=== PATIENT | female | born 1965 | race Caucasian/White ===

== ENCOUNTER 2018-11-11 00:51 | Emergency (ER) | payer SELFPAY ==
[2018-11-11] MEDS ORDERED: Famotidine 20 MG/2 ML SDV IVPUSH ONE (01:23)
[2018-11-11] MEDS ORDERED: Ondansetron 4 MG/2 ML SDV IVPUSH ONE (01:23)
[2018-11-11] MEDS ORDERED: Sodium Chloride 0.9% 10 ML Syringe FLUSH PRN (01:23)
[2018-11-11] MEDS ORDERED: HYDROmorphone 1 MG/ML Syringe IVPUSH ONE (01:24)
--- NOTE | 2018-11-11 01:28 | EDM.PDOC ---
ED HPI GENERAL MEDICAL PROBLEM - General Chief Complaint: Abdominal Pain Stated Complaint: abdominal and back pain Time Seen by Provider: 11/11/18 01:09 Source of Information: Reports: Patient, RN Notes Reviewed - History of Present Illness INITIAL COMMENTS - FREE TEXT/NARRATIVE: 52-year-old lady comes in with upper midabdominal pain radiating to her back. She's had this for the last 2 or 3 days fairly steady, worse this evening after eating some eggs fried in "gann grease". She has had this in the past as well. She does have history of hypertension, thyroid disease and states she has actually been off of medication for about a year or more. She ran out of her meds, her provider moved away and she has not yet found a new provider. She did see a provider at [facility] earlier today, was provided some Prilosec but then called later and advised not to start taking it based on her lab work . Did have 1 dose prior to the phone call. She still does have her gallbladder. She states gallbladder disease does run in her family. Epigastric Pain Score (Numeric/FACES): 8 - Related Data Allergies Allergy/AdvReac Type Severity Reaction Status Date / Time No Known Allergies Allergy Verified 11/11/18 01:07 Home Meds: Home Meds Acetaminophen/HYDROcodone [[place] 325-5 MG] 1 tab PO Q6H PRN #14 tablet 11/11/18 [Rx] Hydrochlorothiazide [Microzide] 25 mg PO DAILY #30 capsule 11/11/18 [Rx] Past Medical History - Past Health History Medical/Surgical History: Denies Medical/Surgical History Social & Family History - Tobacco Use Smoking Status *Q: Never Smoker - Caffeine Use Caffeine Use: Reports: Coffee, Soda ED ROS GENERAL - Review of Systems Review Of Systems: See Below Constitutional: Denies: Fever, Chills, Diaphoresis HEENT: Denies: Throat Pain Respiratory: Denies: Shortness of Breath Cardiovascular: Denies: Chest Pain GI/Abdominal: Reports: Abdominal Pain, Nausea (Mild). Denies: Vomiting Musculoskeletal: Reports: Back Pain Skin: Reports: No Symptoms Neurological: Reports: No Symptoms ED EXAM, GI/ABD - Physical Exam Exam: See Below General Appearance: Alert, Moderate Distress Throat/Mouth: Normal Inspection Head: Atraumatic Neck: Supple Respiratory/Chest: No Respiratory Distress, Lungs Clear, Normal Breath Sounds Cardiovascular: Regular Rate, Rhythm GI/Abdominal Exam: Soft, Tender (Upper mid abdomen and right upper mid abdomen) Back Exam: No: CVA Tenderness (L), CVA Tenderness (R) Extremities: Normal Inspection. No: Pedal Edema, Leg Pain Neurological: No Motor/Sensory Deficits Skin Exam: Warm, Dry, Normal Color Course - Vital Signs Last Recorded V/S: Last Vital Signs Temp 97.1 F 11/11/18 01:03 Pulse 114 H 11/11/18 01:03 Resp 16 11/11/18 01:03 BP 217/95 H 11/11/18 01:03 Pulse Ox 96 11/11/18 01:03 - Orders/Labs/Meds Orders: Active Orders 24 hr Category Date Time Status Peripheral IV Care [RC] . DIRECTED Care 11/11/18 01:23 Active Sodium Chloride 0.9% [Saline Flush] Med 11/11/18 01:23 Active 10 ml FLUSH ASDIRECTED PRN Peripheral IV Insertion Adult [OM.PC] Stat Oth 11/11/18 01:23 Ordered Medication Orders Sodium Chloride (Saline Flush) 10 ml FLUSH ASDIRECTED PRN PRN Reason: Keep Vein Open Last Admin: 11/11/18 01:37 Dose: 10 ml Meds: Medications Generic Name Dose Route Start Last Admin Trade Name Freq PRN Reason Stop Dose Admin Sodium Chloride 10 ml 11/11/18 01:23 11/11/18 01:37 Saline Flush FLUSH 10 ml ASDIRECTED PRN Administration Keep Vein Open Discontinued Medications Generic Name Dose Route Start Last Admin Trade Name Freq PRN Reason Stop Dose Admin Famotidine 20 mg 11/11/18 01:23 11/11/18 01:34 Pepcid IVPUSH 11/11/18 01:24 20 mg ONETIME ONE Administration Hydromorphone HCl 0.5 mg 11/11/18 01:24 11/11/18 01:35 Dilaudid IVPUSH 11/11/18 01:25 0.5 mg ONETIME ONE Administration Ondansetron HCl 4 mg 11/11/18 01:23 11/11/18 01:33 Zofran IVPUSH 11/11/18 01:24 4 mg ONETIME ONE Administration - Re-Assessments/Exams Free Text/Narrative Re-Assessment/Exam: 11/11/18 02:19 We did request information from [facility] regarding labs and visit of yesterday afternoon. Her white blood count did come over, chemistries did not come over. White blood count was 11,200, hgb 9.4. We have given Dilaudid 0.5 mg IV, Zofran 4 mg IV and that has given her fairly good relief of her discomfort. Resting comfortably at this time, feels up to going home. Have written a request for out patient ultrasound of her gallbladder. Radiology will call her this morning to set up a time for that. Blood pressure was very high on arrival, did come down to 176/80 and now currently 184/68. Did write a prescription for the hydrochlorothiazide 25 mg daily that she had previously been on and apparently ran out about a year ago. Departure - Departure Time of Disposition: 15:00 Disposition: Home, Self-Care 01 Condition: Fair Clinical Impression: Abdominal pain Qualifiers: Abdominal location: upper abdomen, unspecified Qualified Code(s): R10.10 - Upper abdominal pain, unspecified Hypertension Qualifiers: Hypertension type: essential hypertension Qualified Code(s): I10 - Essential ( primary) hypertension - Discharge Information Prescriptions: Acetaminophen/HYDROcodone [[place] 325-5 MG] 1 tab PO Q6H PRN #14 tablet PRN Reason: Pain Hydrochlorothiazide [Microzide] 25 mg PO DAILY #30 capsule Instructions: How to Take Your Blood Pressure, [id number], Hypertension, Easy -to-Read Referrals: PCP,None [Primary Care Provider] - Forms: ED Department Discharge Additional Instructions: Order has been submitted to radiology for ultrasound of gallbladder, they will call you this morning to give you a time to get that done. Nothing to eat or drink from midnight on the morning before getting your ultrasound done. Follow- up clinic one or 2 days after ultrasound of the gallbladder to get results. In the meantime avoid all fatty foods. Start hydrochlorothiazide 25 mg daily for hypertension as previously prescribed. Tylenol for mild discomfort, hydrocodone if needed for severe pain. Return to ED as needed if symptoms worsening in any way. - My Orders Last 24 Hours: My Active Orders 11/11/18 01:23 Peripheral IV Care [RC] . DIRECTED Sodium Chloride 0.9% [Saline Flush] 10 ml FLUSH ASDIRECTED PRN Peripheral IV Insertion Adult [OM.PC] Stat - Assessment/Plan Last 24 Hours: My Active Orders 11/11/18 01:23 Peripheral IV Care [RC] . DIRECTED Sodium Chloride 0.9% [Saline Flush] 10 ml FLUSH ASDIRECTED PRN Peripheral IV Insertion Adult [OM.PC] Stat
== END 2018-11-11 02:41 | disposition home or self-care (01) ==
LOC: JD.ED 00:51
DX: R10.11 Right upper quadrant pain (principal); I10 Essential (primary) hypertension
CPT/HCPCS: 96374; 96375; 99283; J1170; J2405; J3490; 99284

== ENCOUNTER 2019-10-12 19:30 | Emergency (ER) | payer BC ==
[2019-10-12] MEDS ORDERED: cloNIDine 0.1 MG Tab PO ONE (20:14)
--- NOTE | 2019-10-12 21:46 | EDM.PDOC ---
ED HPI GENERAL MEDICAL PROBLEM - General Chief Complaint: Cardiovascular Problem Stated Complaint: high blood pressure Time Seen by Provider: 10/12/19 19:51 Source of Information: Reports: Patient, RN Notes Reviewed - History of Present Illness INITIAL COMMENTS - FREE TEXT/NARRATIVE: 33-year-old female referred here from clinic for elevated blood pressure. Pressure at the clinic was just over 200 systolic and she had a similar reading at home this afternoon. She states the last several days have been very stressful and that has not helped. No chest discomfort or difficulty breathing. No headache, visual difficulties or other unusual symptoms. She does have history of borderline hypertension in the past, has been on hydrochlorothiazide in the past. He states that she also does have known renal insufficiency, etiology not clear. - Related Data Allergies Allergy/AdvReac Type Severity Reaction Status Date / Time No Known Allergies Allergy Verified 11/11/18 01:07 Home Meds: Home Meds hydroCHLOROthiazide [Hydrochlorothiazide] 12.5 mg PO DAILY #30 cap 10/12/19 [Rx] Past Medical History - Past Health History Medical/Surgical History: Denies Medical/Surgical History Genitourinary History: Reports: Acute Renal Failure Other Genitourinary History: diagnosed about 1 yr ago - Infectious Disease History Infectious Disease History: Reports: Shingles - Past Surgical History GI Surgical History: Reports: Cholecystectomy Social & Family History - Tobacco Use Smoking Status *Q: Never Smoker - Caffeine Use Caffeine Use: Reports: Coffee, Soda, Tea - Recreational Drug Use Recreational Drug Use: No ED ROS GENERAL - Review of Systems Review Of Systems: See Below Constitutional: Denies: Fever, Chills, Diaphoresis HEENT: Reports: No Symptoms Respiratory: Denies: Shortness of Breath, Hemoptysis GI/Abdominal: Denies: Abdominal Pain, Nausea, Vomiting : Denies: Dysuria, Flank Pain Musculoskeletal: Denies: Shoulder Pain, Arm Pain, Back Pain Skin: Reports: No Symptoms Neurological: Reports: No Symptoms ED EXAM, GENERAL - Physical Exam Exam: See Below General Appearance: Alert, No Apparent Distress Eye Exam: Bilateral Eye: PERRL Throat/Mouth: Normal Inspection, Normal Oropharynx Head: Atraumatic. No: Facial Swelling Neck: Supple, Other Respiratory/Chest: No Respiratory Distress, Lungs Clear, Normal Breath Sounds. No: Respiratory Distress, Rales, Rhonchi, Wheezing Cardiovascular: Tachycardia GI/Abdominal: Soft, Non-Tender Back Exam: No: CVA Tenderness (L), CVA Tenderness (R) Extremities: Normal Inspection, Normal Range of Motion. No: Pedal Edema, Leg Pain Neurological: Alert, Oriented, No Motor/Sensory Deficits Skin Exam: Warm, Dry, Normal Color Course - Vital Signs Last Recorded V/S: Last Vital Signs Temp 98.7 F 10/12/19 19:53 Pulse 87 10/12/19 21:52 Resp 20 10/12/19 19:53 BP 154/65 H 10/12/19 21:52 Pulse Ox 100 10/12/19 19:53 - Orders/Labs/Meds Labs: Laboratory Tests 10/12/19 10/12/19 Range/Units 20:32 20:32 WBC 10.35 H (3.98-10.04) K/mm3 RBC 4.12 (3.98-5.22) M/mm3 Hgb 11.2 (11.2-15.7) gm/dl Hct 37.1 (34.1-44.9) % MCV 90.0 (79.4-94.8) fl MCH 27.2 (25.6-32.2) pg MCHC 30.2 L (32.2-35.5) g/dl RDW Std Deviation 48.6 H (36.4-46.3) fL Plt Count 303 (182-369) K/mm3 MPV 10.0 (9.4-12.3) fl Neut % (Auto) 72.1 H (34.0-71.1) % Lymph % (Auto) 20.1 (19.3-51.7) % [place] % (Auto) 5.4 (4.7-12.5) % Eos % (Auto) 1.8 (0.7-5.8) Baso % (Auto) 0.4 (0.1-1.2) % Neut # (Auto) 7.46 H (1.56-6.13) K/mm3 Lymph # (Auto) 2.08 (1.18-3.74) K/mm3 [place] # (Auto) 0.56 H (0.24-0.36) K/mm3 Eos # (Auto) 0.19 (0.04-0.36) K/mm3 Baso # (Auto) 0.04 (0.01-0.08) K/mm3 Manual Slide Review Normal smear Sodium 139 (136-145) mEq/L Potassium 4.0 (3.5-5.1) mEq/L Chloride 104 (98-107) mEq/L Carbon Dioxide 21 (21-32) mEq/L Anion Gap 18.0 H (5-15) BUN 43 H (7-18) mg/dL Creatinine 2.4 H (0.55-1.02) mg/dL Est Cr Clr Drug Dosing 27.03 mL/min Estimated GFR (MDRD) 21 (>60) mL/min BUN/Creatinine Ratio 17.9 (14-18) Glucose 126 H (74-106) mg/dL Calcium 9.3 (8.5-10.1) mg/dL Total Bilirubin 0.3 (0.2-1.0) mg/dL AST 12 L (15-37) U/L ALT 19 (14-59) U/L Alkaline Phosphatase 149 H (46-116) U/L Total Protein 7.8 (6.4-8.2) g/dl Albumin 3.4 (3.4-5.0) g/dl Globulin 4.4 gm/dL Albumin/Globulin Ratio 0.8 L (1-2) Meds: Medications Discontinued Medications Generic Name Dose Route Start Last Admin Trade Name Kavya PRN Reason Stop Dose Admin Clonidine HCl 0.2 mg 10/12/19 20:14 10/12/19 20:25 Catapres PO 10/12/19 20:15 0.2 mg ONETIME ONE Administration - Re-Assessments/Exams Free Text/Narrative Re-Assessment/Exam: 10/13/19 01:02 Creatinine 2.4, BUN mildly elevated. Other labs relatively okay. Was given clonidine 0.2 mg p.o. and with that BP came down to the 160/90 range. She has been on hydrochlorothiazide the past, sounds like she just did not carry through with that, we will put her back on low-dose hydrochlorothiazide 12.5 mg daily for now. 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 Discharge instructions as documented. Departure - Departure Time of Disposition: 21:42 Disposition: Home, Self-Care 01 Condition: Fair Clinical Impression: Renal insufficiency Hypertension Qualifiers: Hypertension type: essential hypertension Qualified Code(s): I10 - Essential ( primary) hypertension Prescriptions: hydroCHLOROthiazide [Hydrochlorothiazide] 12.5 mg PO DAILY #30 cap Instructions: Hypertension, [id number], Chronic Kidney Disease, Adult Referrals: Pelon Saldaña MD [Primary Care Provider] - Forms: ED Department Discharge Additional Instructions: See your Mowing Machine Operator in 2 weeks as planned. Hydrochlorothiazide 12.5 mg daily for now. [facility] Check your BP at home 2 to 3 times daily and keep a log for your providers. Follow up with your local provider in the meantime as needed. Sepsis Event Note - Evaluation Sepsis Screening Result: No Definite Risk - Focused Exam Vital Signs: Vital Signs Temp Pulse Resp BP BP Pulse Ox 10/12/19 21:52 87 154/65 H 10/12/19 20:25 181/89 H 10/12/19 19:53 98.7 F 104 H 20 172/94 H 100 Date Exam was Performed: 10/13/19 Time Exam was Performed: 00:58
== END 2019-10-12 21:53 | disposition home or self-care (01) ==
LOC: JD.ED 19:30 → SUPCPDRO 19:30 → JD.ED 21:53
DX: I10 Essential (primary) hypertension (principal); N28.9 Disorder of kidney and ureter, unspecified; Z79.899 Other long term (current) drug therapy
CPT/HCPCS: 36415; 80053; 85025; 99283; A9270

== ENCOUNTER 2019-10-15 06:59 | Emergency (ER) | payer BC ==
--- NOTE | 2019-10-15 07:07 | EDM.PDOC ---
ED HPI GENERAL MEDICAL PROBLEM - General Chief Complaint: General Stated Complaint: BLOOD PRESSURE Time Seen by Provider: 10/15/19 07:07 - History of Present Illness INITIAL COMMENTS - FREE TEXT/NARRATIVE: 53-year-old female presents to the emergency room with elevated blood pressure. Apparently the patient has some underlying renal insufficiency and has seen nephrology for this. Several days ago she was started on hydrochlorothiazide. She took 12.5 mg for 1 day and then this was increased to 25 mg a day. Nephrology started her on amlodipine 5 mg a day. This morning she took her blood pressure she was not having any new symptoms and her systolic blood pressure was 217. She did not have any chest pain chest pressure or breathing difficulties or shortness of breath but became really concerned about this and she is stressing over her uncertain kidney problems. Patient had a cholecystectomy about a year ago and her creatinine was elevated at that time most recently has been running 2.5. - Related Data Allergies Allergy/AdvReac Type Severity Reaction Status Date / Time No Known Allergies Allergy Verified 11/11/18 01:07 Home Meds: Home Meds hydroCHLOROthiazide [Hydrochlorothiazide] 12.5 mg PO DAILY #30 cap 10/12/19 [Rx] amLODIPine [Norvasc] 5 mg PO DAILY 10/15/19 [History] hydrALAZINE [Apresoline] 10 mg PO Q8H #30 tab 10/15/19 [Rx] Past Medical History - Past Health History Medical/Surgical History: Denies Medical/Surgical History Genitourinary History: Reports: Acute Renal Failure Other Genitourinary History: diagnosed about 1 yr ago - Infectious Disease History Infectious Disease History: Reports: Shingles - Past Surgical History GI Surgical History: Reports: Cholecystectomy Social & Family History - Caffeine Use Caffeine Use: Reports: Coffee, Soda, Tea ED ROS GENERAL - Review of Systems Review Of Systems: See Below Constitutional: Reports: No Symptoms HEENT: Reports: No Symptoms Respiratory: Reports: No Symptoms Cardiovascular: Reports: No Symptoms GI/Abdominal: Reports: No Symptoms : Reports: No Symptoms Skin: Reports: No Symptoms Neurological: Reports: No Symptoms ED EXAM, GENERAL - Physical Exam Exam: See Below Exam Limited By: No Limitations General Appearance: Alert, No Apparent Distress Head: Atraumatic, Normocephalic Neck: Normal Inspection, Supple, Non-Tender, Full Range of Motion, Other (No JVD ). No: Lymphadenopathy (L), Lymphadenopathy (R) Respiratory/Chest: No Respiratory Distress, Lungs Clear, Normal Breath Sounds Cardiovascular: Regular Rate, Rhythm, No Edema, No Murmur GI/Abdominal: Normal Bowel Sounds, Soft, Non-Tender, Other (Obese) Back Exam: Normal Inspection. No: CVA Tenderness (L), CVA Tenderness (R) Extremities: Normal Inspection, No Pedal Edema Course - Vital Signs Last Recorded V/S: Last Vital Signs Temp 36.2 C 10/15/19 07:08 Pulse 92 10/15/19 07:08 Resp 18 10/15/19 07:08 BP 186/106 H 10/15/19 07:08 Pulse Ox - Orders/Labs/Meds Orders: Active Orders 24 hr Category Date Time Status EKG Documentation Completion [RC] STAT Care 10/15/19 07:45 Active Art Willy Duplex Renal Ltd [US] Stat Exams 10/15/19 08:07 Taken Retroperitoneal Ltd [US] Routine Exams 10/15/19 10:40 Taken Labs: Laboratory Tests 10/15/19 10/15/19 10/15/19 Range/Units 08:05 08:05 08:05 WBC 6.69 (3.98-10.04) K/mm3 RBC 4.13 (3.98-5.22) M/mm3 Hgb 11.3 (11.2-15.7) gm/dl Hct 37.1 (34.1-44.9) % MCV 89.8 (79.4-94.8) fl MCH 27.4 (25.6-32.2) pg MCHC 30.5 L (32.2-35.5) g/dl RDW Std Deviation 48.2 H (36.4-46.3) fL Plt Count 274 (182-369) K/mm3 MPV 10.0 (9.4-12.3) fl Neutrophils % (Manual) 66 H (40-60) % Band Neutrophils % 0 (0-10) % Lymphocytes % (Manual) 28 (20-40) % Atypical Lymphs % 0 % Monocytes % (Manual) 3 (2-10) % Eosinophils % (Manual) 3 (0.7-5.8) % Basophils % (Manual) 0 L (0.1-1.2) Platelet Estimate Adequate Plt Morphology Comment Normal RBC Morph Comment Normal Sodium 140 (136-145) mEq/L Potassium 4.2 (3.5-5.1) mEq/L Chloride 105 (98-107) mEq/L Carbon Dioxide 20 L (21-32) mEq/L Anion Gap 19.2 H (5-15) BUN 45 H (7-18) mg/dL Creatinine 2.7 H (0.55-1.02) mg/dL Est Cr Clr Drug Dosing 24.03 mL/min Estimated GFR (MDRD) 18 (>60) mL/min BUN/Creatinine Ratio 16.7 (14-18) Glucose 122 H (74-106) mg/dL Calcium 9.5 (8.5-10.1) mg/dL Phosphorus 4.3 (2.6-4.7) mg/dL Troponin I < 0.017 (0.00-0.056) ng/mL Albumin 3.4 (3.4-5.0) g/dl Urine Color (Yellow) Urine Appearance (Clear) Urine pH (5.0-8.0) Ur Specific [place] (1.005-1.030) Urine Protein (Negative) Urine Glucose (UA) (Negative) Urine Ketones (Negative) Urine Occult Blood (Negative) Urine Nitrite (Negative) Urine Bilirubin (Negative) Urine Urobilinogen (0.2-1.0) Ur Leukocyte Esterase (Negative) U Hyaline Cast (Auto) (0-5) /lpf Urine RBC (0-5) /hpf Urine WBC (0-5) /hpf Ur Epithelial Cells (0-5) /hpf Urine Bacteria (FEW) /hpf Urine Mucus (FEW) /hpf 10/15/19 Range/Units 08:17 WBC (3.98-10.04) K/mm3 RBC (3.98-5.22) M/mm3 Hgb (11.2-15.7) gm/dl Hct (34.1-44.9) % MCV (79.4-94.8) fl MCH (25.6-32.2) pg MCHC (32.2-35.5) g/dl RDW Std Deviation (36.4-46.3) fL Plt Count (182-369) K/mm3 MPV (9.4-12.3) fl Neutrophils % (Manual) (40-60) % Band Neutrophils % (0-10) % Lymphocytes % (Manual) (20-40) % Atypical Lymphs % % Monocytes % (Manual) (2-10) % Eosinophils % (Manual) (0.7-5.8) % Basophils % (Manual) (0.1-1.2) Platelet Estimate Plt Morphology Comment RBC Morph Comment Sodium (136-145) mEq/L Potassium (3.5-5.1) mEq/L Chloride (98-107) mEq/L Carbon Dioxide (21-32) mEq/L Anion Gap (5-15) BUN (7-18) mg/dL Creatinine (0.55-1.02) mg/dL Est Cr Clr Drug Dosing mL/min Estimated GFR (MDRD) (>60) mL/min BUN/Creatinine Ratio (14-18) Glucose (74-106) mg/dL Calcium (8.5-10.1) mg/dL Phosphorus (2.6-4.7) mg/dL Troponin I (0.00-0.056) ng/mL Albumin (3.4-5.0) g/dl Urine Color Yellow (Yellow) Urine Appearance Clear (Clear) Urine pH 6.0 (5.0-8.0) Ur Specific [place] > or = 1.030 (1.005-1.030) Urine Protein 3+ H (Negative) Urine Glucose (UA) Negative (Negative) Urine Ketones Negative (Negative) Urine Occult Blood 2+ H (Negative) Urine Nitrite Negative (Negative) Urine Bilirubin Negative (Negative) Urine Urobilinogen 0.2 (0.2-1.0) Ur Leukocyte Esterase Negative (Negative) U Hyaline Cast (Auto) 5-10 H (0-5) /lpf Urine RBC 5-10 H (0-5) /hpf Urine WBC 0-5 (0-5) /hpf Ur Epithelial Cells 0-5 (0-5) /hpf Urine Bacteria Moderate H (FEW) /hpf Urine Mucus Rare (FEW) /hpf - Re-Assessments/Exams Free Text/Narrative Re-Assessment/Exam: 10/15/19 07:45 The patient did contact nephrology this morning that advised her to come in and they are faxing over some orders they would like set up for the patient. 10/15/19 07:49 Nephrology orders did come and they would like renal artery ultrasound renal panel UA with micro and a urine PCR. 02/21/20 08:07 Apparently we cannot do a urine PCR here. 10/15/19 11:00 Awaiting the report for the renal vascular ultrasound. Labs reviewed her creatinine is 2.7 her BUN is also elevated. She has 3+ proteinuria in her urine she is spilling some red cells leukocyte esterase and nitrates are negative. She probably needs to increase her fluid activity. Awaiting the ultrasound report and I will call nephrology however I am anticipating stopping the hydrochlorothiazide adding low-dose hydralazine 10/15/19 12:09 Did discuss the patient's case with Dr. Granados who is on-call for Dr. Saldaña. We will hold the hydrochlorothiazide start hydralazine 10 mg 3 times a day continue the Norvasc at 5 mg a day the patient should continue to watch her blood pressure very closely I explained the tendency for hydralazine to cause sudden drops in blood pressure with change of position and gave her instructions to be very careful of this for the next 2 to 3 days. She needs to keep a close eye on her blood pressure the patient has follow-up with nephrology on Friday. Did review lab findings and ultrasound report with Dr. Granados. Departure - Departure Time of Disposition: 12:11 Disposition: Home, Self-Care 01 Clinical Impression: Renal insufficiency Hypertension Qualifiers: Hypertension type: essential hypertension Qualified Code(s): I10 - Essential ( primary) hypertension - Discharge Information Prescriptions: hydrALAZINE [Apresoline] 10 mg PO Q8H #30 tab Referrals: PCP,Not In Area [Primary Care Provider] - Forms: ED Department Discharge Additional Instructions: Return to the emergency room with any questions problems or worsening symptoms. Stop the hydrochlorothiazide. Continue the amlodipine, or Norvasc. You have been started on hydralazine take this 1 3 times a day. As we discussed use caution with changing positions as you can have some transient drop in blood pressure with change of position until your system gets used to being on this. Follow-up with nephrology as scheduled. You may call nephrology with any questions or problems if needed. Check your blood pressure at least twice a day or if you have persistent dizziness. Sepsis Event Note - Focused Exam Vital Signs: Vital Signs Temp Pulse Resp BP 10/15/19 07:08 36.2 C 92 18 186/106 H Date Exam was Performed: 10/15/19 Time Exam was Performed: 10:59 - My Orders Last 24 Hours: My Active Orders 10/15/19 07:45 EKG Documentation Completion [RC] STAT 10/15/19 08:07 Art Willy Duplex Renal Ltd [US] Stat 10/15/19 10:40 Retroperitoneal Ltd [US] Routine - Assessment/Plan Last 24 Hours: My Active Orders 10/15/19 07:45 EKG Documentation Completion [RC] STAT 10/15/19 08:07 Art Willy Duplex Renal Ltd [US] Stat 10/15/19 10:40 Retroperitoneal Ltd [US] Routine
--- NOTE | 2019-10-15 11:10 | US ---
Renal ultrasound with renal arterial Doppler: Multiple real-time images of the kidneys were obtained as well as duplex and color Doppler evaluation of the renal arteries. Comparison: Previous right kidney is seen on ultrasound of 11/12/18. Cortex of both kidneys are somewhat echogenic. No hydronephrosis or discrete mass is seen. Resistivity indices are slightly increased on the left side. Peak systolic velocity measurement within the right renal artery is distally at 0.75 m/s. Peak systolic velocity measurement within the left renal artery is proximally at 0.91 m/s. Both renal veins are patent. Bilateral ureteral jets seen within the bladder. Prevoid bladder volume is 456 mL with bladder emptied completely on postvoid exam. Right kidney length is 9.8 cm and left kidney length is 14.1 cm. Impression: 1. Echogenic renal cortices within both kidneys as well as mildly increased resistivity indices within the left kidney which is suspicious for medical renal disease. 2. Velocity measurements within both renal arteries are within normal limits with nothing seen to indicate hemodynamic significant stenosis. 3. Asymmetric kidney sizes which is felt to be of no acute significance and is likely chronic. Diagnostic code #3 This report was dictated in [place] Standard Time
== END 2019-10-15 12:19 | disposition home or self-care (01) ==
LOC: JD.ED 06:59
DX: I10 Essential (primary) hypertension (principal); N28.9 Disorder of kidney and ureter, unspecified; Z79.899 Other long term (current) drug therapy
CPT/HCPCS: 36415; 76775; 76775-26; 80069; 81001; 84484; 85007; 85027; 93005; 93976; 93976-26; 99283; 99284-25

== ENCOUNTER 2020-06-26 10:25 | Emergency (ER) | payer OTHER ==
[2020-06-26] MEDS ORDERED: Sodium Chloride 0.9% 10 ML Syringe FLUSH PRN (10:57)
[2020-06-26] MEDS ORDERED: Sodium Chloride 0.9% 250 ML IV SCH (13:00)
--- NOTE | 2020-06-26 14:50 | EDM.PDOC ---
ED HPI GENERAL MEDICAL PROBLEM - General Chief Complaint: General Stated Complaint: LOW HEMOGLOBIN Time Seen by Provider: 06/26/20 10:41 Source of Information: Reports: Patient History Limitations: Reports: No Limitations - History of Present Illness INITIAL COMMENTS - FREE TEXT/NARRATIVE: The patient presents for low blood counts. She went to the clinic today to see her provider Anita Osman. She has been having generalized weakness and dizziness for about 3 weeks. They did labs and they called her to come up to the ER to check for a bleed. She denies having any dark or tarry stools. She has no fever, chills, cough, congestion, runny nose, chest pain, shortness of breath abdominal pain, nausea or vomiting. She has no diarrhea. She has a history of kidney disease and she sees Dr Buitrago for this. This was found after she got her gallbladder out. Onset: Gradual Duration: Week(s): (3) Severity: Moderate Improves with: Reports: None Worsens with: Reports: None Associated Symptoms: Reports: No Other Symptoms - Related Data Allergies Allergy/AdvReac Type Severity Reaction Status Date / Time fluconazole [From Diflucan] Allergy Rash Verified 06/26/20 10:41 Home Meds: Home Meds amLODIPine [Norvasc] 5 mg PO DAILY 10/15/19 [History] Ferrous Gluconate 240 mg PO DAILY #30 tablet 06/26/20 [Rx] hydrALAZINE [Apresoline] 25 mg PO BID 06/26/20 [History] Past Medical History - Past Health History Medical/Surgical History: Denies Medical/Surgical History HEENT History: Reports: None Cardiovascular History: Reports: Hypertension Respiratory History: Reports: None Genitourinary History: Reports: Acute Renal Failure Other Genitourinary History: diagnosed about 1 yr ago [employer] History: Reports: Fibroids, Musculoskeletal History: Reports: None Neurological History: Reports: None Psychiatric History: Reports: None Endocrine/Metabolic History: Reports: None Hematologic History: Reports: None Immunologic History: Reports: None Oncologic (Cancer) History: Reports: None Dermatologic History: Reports: None - Infectious Disease History Infectious Disease History: Reports: Shingles - Past Surgical History GI Surgical History: Reports: Cholecystectomy Social & Family History - Tobacco Use Tobacco Use Status *Q: Never Tobacco User - Caffeine Use Caffeine Use: Reports: Coffee, Soda, Tea ED ROS GENERAL - Review of Systems Review Of Systems: See Below Constitutional: Reports: Malaise, Weakness, Fatigue HEENT: Reports: No Symptoms Respiratory: Reports: No Symptoms Cardiovascular: Reports: No Symptoms Endocrine: Reports: No Symptoms GI/Abdominal: Reports: No Symptoms : Reports: No Symptoms Musculoskeletal: Reports: No Symptoms Skin: Reports: No Symptoms ED EXAM, GENERAL - Physical Exam Exam: See Below Exam Limited By: No Limitations General Appearance: Alert, No Apparent Distress Ears: Normal External Exam Nose: Normal Inspection Head: Atraumatic, Normocephalic Neck: Normal Inspection Respiratory/Chest: No Respiratory Distress, Lungs Clear, Normal Breath Sounds Cardiovascular: Regular Rate, Rhythm, No Edema, No Murmur GI/Abdominal: Soft, Non-Tender, No Organomegaly, No Mass Rectal (Female) Exam: Heme - Stool Back Exam: Normal Inspection Extremities: Normal Inspection Course - Vital Signs Last Recorded V/S: Last Vital Signs Temp 98.6 F 06/26/20 16:50 Pulse 86 06/26/20 16:50 Resp 134 H 06/26/20 16:50 BP 134/3 L 06/26/20 16:50 Pulse Ox 100 06/26/20 15:35 - Orders/Labs/Meds Orders: Active Orders 24 hr Category Date Time Status Peripheral IV Care [RC] . DIRECTED Care 06/26/20 10:58 Active DIRECT LYNN GEL [BBK] Stat Lab 06/26/20 11:53 Results RED BLOOD CELLS LP [BBK] Stat Lab 06/26/20 11:53 Results Sodium Chloride 0.9% [Normal Saline] 250 ml Med 06/26/20 13:00 Active IV ASDIRECTED Sodium Chloride 0.9% [Saline Flush] Med 06/26/20 10:57 Active 10 ml FLUSH ASDIRECTED PRN Peripheral IV Insertion Adult [OM.PC] Stat Oth 06/26/20 10:57 Ordered Transfuse PRBC [Transfuse Red Blood Cells] [COMM] Stat Oth 06/26/20 12:05 Ordered Transfuse RBC [Transfuse Red Blood Cells] [COMM] Stat Oth 06/26/20 17:13 Ordered Medication Orders Sodium Chloride (Normal Saline) 250 mls @ 75 mls/hr IV ASDIRECTED [facility] Last Admin: 06/26/20 13:07 Dose: 75 mls/hr Documented by: BUNNY Sodium Chloride (Saline Flush) 10 ml FLUSH ASDIRECTED PRN PRN Reason: Keep Vein Open Last Admin: 06/26/20 11:02 Dose: 10 ml Documented by: BUNNY Labs: Laboratory Tests 06/26/20 06/26/20 06/26/20 Range/Units 10:55 10:55 10:55 WBC 12.71 H (3.98-10.04) K/mm3 RBC 1.91 L (3.98-5.22) M/mm3 Hgb 4.2 L* D (11.2-15.7) gm/dl Hct 16.0 L (34.1-44.9) % MCV 83.8 D (79.4-94.8) fl MCH 22.0 L (25.6-32.2) pg MCHC 26.3 L (32.2-35.5) g/dl RDW Std Deviation 55.5 H (36.4-46.3) fL Plt Count 599 H D (182-369) K/mm3 MPV 9.0 L (9.4-12.3) fl Neut % (Auto) 79.2 H (34.0-71.1) % Lymph % (Auto) 11.8 L (19.3-51.7) % [place] % (Auto) 6.8 (4.7-12.5) % Eos % (Auto) 0.6 L (0.7-5.8) Baso % (Auto) 0.5 (0.1-1.2) % Neut # (Auto) 10.07 H (1.56-6.13) K/mm3 Lymph # (Auto) 1.50 (1.18-3.74) K/mm3 [place] # (Auto) 0.86 H (0.24-0.36) K/mm3 Eos # (Auto) 0.08 (0.04-0.36) K/mm3 Baso # (Auto) 0.06 (0.01-0.08) K/mm3 Manual Slide Review Abnormal smear Percent Retic (0.50-1.70) % Sodium 136 (136-145) mEq/L Potassium 4.2 (3.5-5.1) mEq/L Chloride 101 (98-107) mEq/L Carbon Dioxide 19 L (21-32) mEq/L Anion Gap 20.2 H (5-15) BUN 31 H (7-18) mg/dL Creatinine 2.5 H (0.55-1.02) mg/dL Est Cr Clr Drug Dosing 25.65 mL/min Estimated GFR (MDRD) 20 (>60) mL/min BUN/Creatinine Ratio 12.4 L (14-18) Glucose 144 H (74-106) mg/dL Calcium 9.7 (8.5-10.1) mg/dL Iron 18 L (50-170) ug/dL TIBC 184 (100-400) ug/dL % Saturation 10 L (20-55) % Transferrin 147 L (202-364) mg/dL Ferritin (8-252) ng/ml Total Bilirubin 0.6 (0.2-1.0) mg/dL AST 28 (15-37) U/L ALT 29 (14-59) U/L Alkaline Phosphatase 409 H (46-116) U/L Total Protein 8.1 (6.4-8.2) g/dl Albumin 2.0 L (3.4-5.0) g/dl Globulin 6.1 gm/dL Albumin/Globulin Ratio 0.3 L (1-2) TSH 3rd Generation (0.358-3.74) uIU/mL Blood Type Gel Antibody Screen Direct AHG Gel w GREGG Crossmatch 06/26/20 06/26/20 06/26/20 Range/Units 10:55 10:55 11:53 WBC (3.98-10.04) K/mm3 RBC (3.98-5.22) M/mm3 Hgb (11.2-15.7) gm/dl Hct (34.1-44.9) % MCV (79.4-94.8) fl MCH (25.6-32.2) pg MCHC (32.2-35.5) g/dl RDW Std Deviation (36.4-46.3) fL Plt Count (182-369) K/mm3 MPV (9.4-12.3) fl Neut % (Auto) (34.0-71.1) % Lymph % (Auto) (19.3-51.7) % [place] % (Auto) (4.7-12.5) % Eos % (Auto) (0.7-5.8) Baso % (Auto) (0.1-1.2) % Neut # (Auto) (1.56-6.13) K/mm3 Lymph # (Auto) (1.18-3.74) K/mm3 [place] # (Auto) (0.24-0.36) K/mm3 Eos # (Auto) (0.04-0.36) K/mm3 Baso # (Auto) (0.01-0.08) K/mm3 Manual Slide Review Percent Retic 3.24 H (0.50-1.70) % Sodium (136-145) mEq/L Potassium (3.5-5.1) mEq/L Chloride (98-107) mEq/L Carbon Dioxide (21-32) mEq/L Anion Gap (5-15) BUN (7-18) mg/dL Creatinine (0.55-1.02) mg/dL Est Cr Clr Drug Dosing mL/min Estimated GFR (MDRD) (>60) mL/min BUN/Creatinine Ratio (14-18) Glucose (74-106) mg/dL Calcium (8.5-10.1) mg/dL Iron (50-170) ug/dL TIBC (100-400) ug/dL % Saturation (20-55) % Transferrin (202-364) mg/dL Ferritin (8-252) ng/ml Total Bilirubin (0.2-1.0) mg/dL AST (15-37) U/L ALT (14-59) U/L Alkaline Phosphatase (46-116) U/L Total Protein (6.4-8.2) g/dl Albumin (3.4-5.0) g/dl Globulin gm/dL Albumin/Globulin Ratio (1-2) TSH 3rd Generation 4.484 H (0.358-3.74) uIU/mL Blood Type O POSITIVE Gel Antibody Screen Negative Direct [facility] Gel w GREGG Crossmatch See Detail 06/26/20 06/26/20 06/26/20 Range/Units 11:53 11:55 16:55 WBC (3.98-10.04) K/mm3 RBC (3.98-5.22) M/mm3 Hgb 5.6 L* (11.2-15.7) gm/dl Hct (34.1-44.9) % MCV (79.4-94.8) fl MCH (25.6-32.2) pg MCHC (32.2-35.5) g/dl RDW Std Deviation (36.4-46.3) fL Plt Count (182-369) K/mm3 MPV (9.4-12.3) fl Neut % (Auto) (34.0-71.1) % Lymph % (Auto) (19.3-51.7) % [place] % (Auto) (4.7-12.5) % Eos % (Auto) (0.7-5.8) Baso % (Auto) (0.1-1.2) % Neut # (Auto) (1.56-6.13) K/mm3 Lymph # (Auto) (1.18-3.74) K/mm3 [place] # (Auto) (0.24-0.36) K/mm3 Eos # (Auto) (0.04-0.36) K/mm3 Baso # (Auto) (0.01-0.08) K/mm3 Manual Slide Review Percent Retic (0.50-1.70) % Sodium (136-145) mEq/L Potassium (3.5-5.1) mEq/L Chloride (98-107) mEq/L Carbon Dioxide (21-32) mEq/L Anion Gap (5-15) BUN (7-18) mg/dL Creatinine (0.55-1.02) mg/dL Est Cr Clr Drug Dosing mL/min Estimated GFR (MDRD) (>60) mL/min BUN/Creatinine Ratio (14-18) Glucose (74-106) mg/dL Calcium (8.5-10.1) mg/dL Iron (50-170) ug/dL TIBC (100-400) ug/dL % Saturation (20-55) % Transferrin (202-364) mg/dL Ferritin 826 H (8-252) ng/ml Total Bilirubin (0.2-1.0) mg/dL AST (15-37) U/L ALT (14-59) U/L Alkaline Phosphatase (46-116) U/L Total Protein (6.4-8.2) g/dl Albumin (3.4-5.0) g/dl Globulin gm/dL Albumin/Globulin Ratio (1-2) TSH 3rd Generation (0.358-3.74) uIU/mL Blood Type Gel Antibody Screen Direct AHG Gel w GREGG Negative Crossmatch See Detail Meds: Medications Generic Name Dose Route Start Last Admin Trade Name Kavya PRN Reason Stop Dose Admin Sodium Chloride 250 mls @ 75 mls/hr 06/26/20 13:00 06/26/20 13:07 Normal Saline IV 75 mls/hr ASDIRECTED SHUBHAM Administration Sodium Chloride 10 ml 06/26/20 10:57 06/26/20 11:02 Saline Flush FLUSH 10 ml ASDIRECTED PRN Administration Keep Vein Open - Re-Assessments/Exams Free Text/Narrative Re-Assessment/Exam: 06/26/20 14:56 I ordered an IV saline lock and labs. Her WBC was elevated at 12.71. Her RBCs were low at 1.91. Her Hgb is very low at 4.2. 06/26/20 15:16 I ordered 2 units of PRBCs and I also did a rectal that was guiac negative. Her Platelets were elevated at 599. Her reticulocyte count was elevated at 3.24. Her anion gap was elevated at 20.2. Her creatinine is elevated at 2.5 which is her baseline. Her iron is low at 18. Her TIBC is 184. Her % saturation is 10. Her transferring is 147. Her Alk Phos is elevated at 409. Her TSH is elevated at 4.484. I called Dr Lee and he did not think this was a failure of her bone marrow but he was thinking it was from blood loss or hemolysis. He wanted me to give blood and recheck a HGB. He then would like to see her outpatient. I did call Anita Willard and she put the order in for Dr Lee and she will follow up with the patient. 06/26/20 18:27 I did a repeat Hgb just before the second unit was done and it was 5.6. I did this to make sure the transfusion was helping and that she was not hemolyzing the donor blood. I have ordered 2 more units and I will discharge her after that. Departure - Departure Time of Disposition: 21:00 Disposition: Home, Self-Care 01 Condition: Good Clinical Impression: Anemia Qualifiers: Anemia type: other cause Other causes of anemia: other cause, not classified Qualified Code(s): D64.89 - Other specified anemias - Discharge Information *PRESCRIPTION DRUG MONITORING PROGRAM REVIEWED*: Not Applicable *COPY OF PRESCRIPTION DRUG MONITORING REPORT IN PATIENT MAURO: Not Applicable Prescriptions: Ferrous Gluconate 240 mg PO DAILY #30 tablet Referrals: Anita Jimenez NP [Primary Care Provider] - 2 Days Forms: ED Department Discharge Additional Instructions: Take the iron daily. Follow up with Anita in 2 days. Please return if you are worse. Sepsis Event Note (ED) - Evaluation Sepsis Screening Result: No Definite Risk - Focused Exam Vital Signs: Vital Signs Temp Temp Pulse Resp BP Pulse Ox 06/26/20 16:50 98.6 F 86 134 H 134/3 L 06/26/20 15:35 97.9 F 95 20 165/64 H 100 06/26/20 15:08 97.8 F 93 18 141/57 H 06/26/20 13:33 98.7 F 91 18 133/49 L 06/26/20 13:18 99.3 F 93 20 132/51 L 06/26/20 13:03 99.3 F 96 20 148/63 H 06/26/20 10:38 98.0 F 108 H 16 108/81 98 - My Orders Last 24 Hours: My Active Orders 06/26/20 10:57 Sodium Chloride 0.9% [Saline Flush] 10 ml FLUSH ASDIRECTED PRN Peripheral IV Insertion Adult [OM.PC] Stat 06/26/20 10:58 Peripheral IV Care [RC] . DIRECTED 06/26/20 11:53 DIRECT LYNN GEL [BBK] Stat RED BLOOD CELLS LP [BBK] Stat 06/26/20 12:05 Transfuse PRBC [Transfuse Red Blood Cells] [COMM] Stat 06/26/20 13:00 Sodium Chloride 0.9% [Normal Saline] 250 ml IV ASDIRECTED 06/26/20 17:13 Transfuse RBC [Transfuse Red Blood Cells] [COMM] Stat - Assessment/Plan Last 24 Hours: My Active Orders 06/26/20 10:57 Sodium Chloride 0.9% [Saline Flush] 10 ml FLUSH ASDIRECTED PRN Peripheral IV Insertion Adult [OM.PC] Stat 06/26/20 10:58 Peripheral IV Care [RC] . DIRECTED 06/26/20 11:53 DIRECT LYNN GEL [BBK] Stat RED BLOOD CELLS LP [BBK] Stat 06/26/20 12:05 Transfuse PRBC [Transfuse Red Blood Cells] [COMM] Stat 06/26/20 13:00 Sodium Chloride 0.9% [Normal Saline] 250 ml IV ASDIRECTED 06/26/20 17:13 Transfuse RBC [Transfuse Red Blood Cells] [COMM] Stat
== END 2020-06-26 22:06 | disposition home or self-care (01) ==
LOC: JD.ED 10:25
DX: D64.89 Other specified anemias (principal); I10 Essential (primary) hypertension; Z88.8 Allergy status to other drugs, medicaments and biological substances; Z79.899 Other long term (current) drug therapy
CPT/HCPCS: 36415; 36430; 80053; 82728; 83540; 84443; 84466; 85018; 85025; 85045; 86850; 86900; 86901; 86922; 99284; J7050; P9016; 99283

== ENCOUNTER 2020-08-07 12:01 | Emergency (ER) | payer OTHER ==
[2020-08-07] MEDS ORDERED: Sodium Chloride 0.9% 10 ML Syringe FLUSH PRN (12:16)
--- NOTE | 2020-08-07 13:20 | EDM.PDOC ---
ED HPI GENERAL MEDICAL PROBLEM - General Chief Complaint: General Stated Complaint: ABNORMAL BLOOD WORK SENT FROM [facility] Time Seen by Provider: 08/07/20 12:16 Source of Information: Reports: Patient, Provider, RN Notes Reviewed History Limitations: Reports: No Limitations - History of Present Illness INITIAL COMMENTS - FREE TEXT/NARRATIVE: Patient is a 54-year-old female sent to the emergency department from the clinic for low hemoglobin. She states over the last week to 2 weeks she has been feeling more fatigued. She had blood work completed with her PCP today and was found to have a hemoglobin of 5.1. She was seen in this emergency department a little over 1 month ago with a hemoglobin of 4.2. She received an infusion of 3 units of red blood cells and states she is feeling much better after that. She had followed up with her PCP shortly thereafter and her hemoglobin was 7.6. At the time of her last ER visit, the provider consulted with engineering manager/oncologi st Dr. Hardin who requested follow-up with her in the clinic. She has not had a follow-up thus far, however states that her PCP is trying to get her into see him tomorrow. She denies any hematemesis or hematochezia. States that she does have dark stools related to her iron supplementation. She has had no fever, chills, shortness of breath, chest pain, nausea, abdominal pain, vomiting, diarrhea, dysuria, hematuria, or flank pain. She does have a history of chronic kidney disease for which she sees gravity prospecting observer, Dr. Buitrago. - Related Data Allergies Allergy/AdvReac Type Severity Reaction Status Date / Time fluconazole [From Diflucan] Allergy Rash Verified 08/07/20 12:14 Home Meds: Home Meds amLODIPine [Norvasc] 5 mg PO DAILY 10/15/19 [History] Ferrous Gluconate 240 mg PO DAILY #30 tablet 06/26/20 [Rx] hydrALAZINE [Apresoline] 25 mg PO BID 06/26/20 [History] Past Medical History - Past Health History Medical/Surgical History: Denies Medical/Surgical History HEENT History: Reports: None Cardiovascular History: Reports: Hypertension Respiratory History: Reports: None Genitourinary History: Reports: Acute Renal Failure Other Genitourinary History: diagnosed about 1 yr ago CL[facility]TER History: Reports: Fibroids, Musculoskeletal History: Reports: None Neurological History: Reports: None Psychiatric History: Reports: None Endocrine/Metabolic History: Reports: None Hematologic History: Reports: Blood Transfusion(s) Immunologic History: Reports: None Oncologic (Cancer) History: Reports: None Dermatologic History: Reports: None - Infectious Disease History Infectious Disease History: Reports: Shingles - Past Surgical History GI Surgical History: Reports: Cholecystectomy Social & Family History - Tobacco Use Tobacco Use Status *Q: Never Tobacco User - Caffeine Use Caffeine Use: Reports: Coffee, Soda, Tea ED ROS GENERAL - Review of Systems Review Of Systems: See Below Constitutional: Reports: Weakness, Fatigue. Denies: Fever, Chills HEENT: Reports: No Symptoms Respiratory: Reports: No Symptoms. Denies: Shortness of Breath, Cough Cardiovascular: Reports: No Symptoms Endocrine: Reports: No Symptoms GI/Abdominal: Reports: No Symptoms. Denies: Bloody Stool, Diarrhea, Decreased Appetite, Hematemesis, Hematochezia, Melena, Nausea, Vomiting : Reports: No Symptoms. Denies: Dysuria, Hematuria, Pain Musculoskeletal: Reports: No Symptoms Skin: Reports: No Symptoms Neurological: Reports: Dizziness (Occasional upon standing). Denies: Headache Psychiatric: Reports: No Symptoms Hematologic/Lymphatic: Reports: No Symptoms Immunologic: Reports: No Symptoms ED EXAM, GENERAL - Physical Exam Exam: See Below Exam Limited By: No Limitations General Appearance: Alert, WD/WN, No Apparent Distress Respiratory/Chest: No Respiratory Distress, Lungs Clear, Normal Breath Sounds, No Accessory Muscle Use, Chest Non-Tender Cardiovascular: Normal Peripheral Pulses, Regular Rate, Rhythm, No Edema, No Gallop, No JVD, No Murmur, No Rub GI/Abdominal: Normal Bowel Sounds, Soft, Non-Tender, No Organomegaly, No Distention, No Abnormal Bruit, No Mass Rectal (Female) Exam: Normal Exam, Normal Rectal Tone, Heme - Stool. No: Black Stool, Bloody Stool Neurological: Alert, Oriented, CN II-XII Intact, Normal Cognition, Normal Gait, Normal Reflexes, No Motor/Sensory Deficits Psychiatric: Normal Affect, Normal Mood Skin Exam: Warm, Dry, Intact, No Rash, Pallor #1 Interpretation EKG Date: 08/07/20 Time: 12:27 Rhythm: NSR Rate (Beats/Min): 109 Hydro: Normal P-Wave: Present QRS: Normal ST-T: Normal QT: Normal Course - Vital Signs Last Recorded V/S: Last Vital Signs Temp 98 F 08/07/20 18:48 Pulse 94 08/07/20 18:48 Resp 16 08/07/20 18:48 BP 156/77 H 08/07/20 18:48 Pulse Ox 98 08/07/20 18:48 - Orders/Labs/Meds Labs: Laboratory Tests 08/07/20 08/07/20 08/07/20 Range/Units 12:28 12:28 12:28 WBC 19.64 H (3.98-10.04) K/mm3 RBC 2.01 L (3.98-5.22) M/mm3 Hgb 5.1 L* (11.2-15.7) gm/dl Hct 18.9 L (34.1-44.9) % MCV 94.0 D (79.4-94.8) fl MCH 25.4 L (25.6-32.2) pg MCHC 27.0 L (32.2-35.5) g/dl RDW Std Deviation 57.9 H (36.4-46.3) fL Plt Count 699 H D (182-369) K/mm3 MPV 8.7 L (9.4-12.3) fl Neut % (Auto) 80.3 H (34.0-71.1) % Lymph % (Auto) 9.4 L (19.3-51.7) % Slope % (Auto) 8.3 (4.7-12.5) % Eos % (Auto) 0.8 (0.7-5.8) Baso % (Auto) 0.1 (0.1-1.2) % Neut # (Auto) 15.77 H (1.56-6.13) K/mm3 Lymph # (Auto) 1.85 (1.18-3.74) K/mm3 Slope # (Auto) 1.63 H (0.24-0.36) K/mm3 Eos # (Auto) 0.15 (0.04-0.36) K/mm3 Baso # (Auto) 0.02 (0.01-0.08) K/mm3 Manual Slide Review Abnormal smear Percent Retic (0.50-1.70) % Sodium 133 L (136-145) mEq/L Potassium 4.1 (3.5-5.1) mEq/L Chloride 98 (98-107) mEq/L Carbon Dioxide 22 (21-32) mEq/L Anion Gap 17.1 H (5-15) BUN 29 H (7-18) mg/dL Creatinine 2.5 H (0.55-1.02) mg/dL Est Cr Clr Drug Dosing TNP Estimated GFR (MDRD) 20 (>60) mL/min BUN/Creatinine Ratio 11.6 L (14-18) Glucose 146 H (74-106) mg/dL Calcium 9.5 (8.5-10.1) mg/dL Iron (50-170) ug/dL TIBC (100-400) ug/dL % Saturation (20-55) % Transferrin (202-364) mg/dL Ferritin (8-252) ng/ml Total Bilirubin 0.7 (0.2-1.0) mg/dL AST 30 (15-37) U/L ALT 22 (14-59) U/L Alkaline Phosphatase 373 H (46-116) U/L Troponin I < 0.017 (0.00-0.056) ng/mL C-Reactive Protein 39.5 H* (<1.0) mg/dL Total Protein 8.0 (6.4-8.2) g/dl Albumin 2.0 L (3.4-5.0) g/dl Globulin 6.0 gm/dL Albumin/Globulin Ratio 0.3 L (1-2) Urine Color (Yellow) Urine Appearance (Clear) Urine pH (5.0-8.0) Ur Specific [place] (1.005-1.030) Urine Protein (Negative) Urine Glucose (UA) (Negative) Urine Ketones (Negative) Urine Occult Blood (Negative) Urine Nitrite (Negative) Urine Bilirubin (Negative) Urine Urobilinogen (0.2-1.0) Ur Leukocyte Esterase (Negative) Urine RBC (0-5) /hpf Urine WBC (0-5) /hpf Ur Squamous Epith Cells (0-5) /hpf Amorphous Sediment (NOT SEEN) /hpf Urine Bacteria (FEW) /hpf Urine Mucus (FEW) /hpf Blood Type O POSITIVE Gel Antibody Screen Negative Crossmatch See Detail 08/07/20 08/07/20 08/07/20 Range/Units 12:28 13:29 16:10 WBC (3.98-10.04) K/mm3 RBC (3.98-5.22) M/mm3 Hgb (11.2-15.7) gm/dl Hct (34.1-44.9) % MCV (79.4-94.8) fl MCH (25.6-32.2) pg MCHC (32.2-35.5) g/dl RDW Std Deviation (36.4-46.3) fL Plt Count (182-369) K/mm3 MPV (9.4-12.3) fl Neut % (Auto) (34.0-71.1) % Lymph % (Auto) (19.3-51.7) % Slope % (Auto) (4.7-12.5) % Eos % (Auto) (0.7-5.8) Baso % (Auto) (0.1-1.2) % Neut # (Auto) (1.56-6.13) K/mm3 Lymph # (Auto) (1.18-3.74) K/mm3 Slope # (Auto) (0.24-0.36) K/mm3 Eos # (Auto) (0.04-0.36) K/mm3 Baso # (Auto) (0.01-0.08) K/mm3 Manual Slide Review Percent Retic 3.02 H (0.50-1.70) % Sodium (136-145) mEq/L Potassium (3.5-5.1) mEq/L Chloride (98-107) mEq/L Carbon Dioxide (21-32) mEq/L Anion Gap (5-15) BUN (7-18) mg/dL Creatinine (0.55-1.02) mg/dL Est Cr Clr Drug Dosing Estimated GFR (MDRD) (>60) mL/min BUN/Creatinine Ratio (14-18) Glucose (74-106) mg/dL Calcium (8.5-10.1) mg/dL Iron 23 L (50-170) ug/dL TIBC 151 (100-400) ug/dL % Saturation 15 L (20-55) % Transferrin 121 L (202-364) mg/dL Ferritin 2644 H (8-252) ng/ml Total Bilirubin (0.2-1.0) mg/dL AST (15-37) U/L ALT (14-59) U/L Alkaline Phosphatase (46-116) U/L Troponin I (0.00-0.056) ng/mL C-Reactive Protein (<1.0) mg/dL Total Protein (6.4-8.2) g/dl Albumin (3.4-5.0) g/dl Globulin gm/dL Albumin/Globulin Ratio (1-2) Urine Color Yellow (Yellow) Urine Appearance Clear (Clear) Urine pH 6.0 (5.0-8.0) Ur Specific [place] 1.025 (1.005-1.030) Urine Protein 2+ H (Negative) Urine Glucose (UA) Negative (Negative) Urine Ketones Negative (Negative) Urine Occult Blood Negative (Negative) Urine Nitrite Negative (Negative) Urine Bilirubin Negative (Negative) Urine Urobilinogen 1.0 (0.2-1.0) Ur Leukocyte Esterase Trace H (Negative) Urine RBC 0-5 (0-5) /hpf Urine WBC 0-5 (0-5) /hpf Ur Squamous Epith Cells 5-10 H (0-5) /hpf Amorphous Sediment Few H (NOT SEEN) /hpf Urine Bacteria Moderate H (FEW) /hpf Urine Mucus Few (FEW) /hpf Blood Type Gel Antibody Screen Crossmatch Meds: Medications Discontinued Medications Generic Name Dose Route Start Last Admin Trade Name Kavya PRN Reason Stop Dose Admin Sodium Chloride 250 mls @ 25 mls/hr 08/07/20 14:15 08/07/20 14:21 Normal Saline IV 25 mls/hr ASDIRECTED SHUBHAM Administration Sodium Chloride 10 ml 08/07/20 12:16 08/07/20 12:37 Saline Flush FLUSH 10 ml ASDIRECTED PRN Administration Keep Vein Open - Re-Assessments/Exams Free Text/Narrative Re-Assessment/Exam: Patient is a 54 year old female presenting to the ER with c/o low hemoglobin. She was seen in the clinic prior to coming to ER and found to have a hgb of 5.1. She has been feeling fatigued for the last 1-2 weeks. She has a hx of iron deficiency anemia for which she received blood transfusion on 06/26/2020. Dr. Lee was consulted by Dr. Cummings at that time and he recommended transfusion and for her to follow-up with him in the clinic. She has been following-up with her PCP but has not seen Dr. Lee thus far. She states that her PCP, Anita Newman NP, is trying to get her an appointment with Dr. Lee tomorrow. Exam is found to be grossly unremarkable. She is hemoccult negative. Denies abdominal pain, nausea, vomiting, diarrhea, fever or chills. I have ordered CBC, CMP, CRP, type and screen, iron studies, reticulocyte count, UA, and 2V chest xray. I have ordered to units of PRBCs to be crossmatched. 08/07/20 1300 Called and spoke with the pt's PCP, Anita Jimenez NP. She is waiting for a call back from Dr. Lee' office. She states that she has done a peripheral smear and that it showed only iron deficiency anemia. She will call us back when she hears from Dr. Lee' office. 08/07/20 14:02 Hematology was significant for WBC elevated at 19.64, hemoglobin low at 5.1, hematocrit low at 18.9. MCV is normal at 94.0, platelets elevated at 699, sodium 133, anion gap 17.1, BUN 29, creatinine 2.5, alkaline phosphatase 373, CRP 39.5. Troponin is negative. Chest x-ray shows no acute abnormalities. Urinalysis is pending. Plan will be to transfuse the 2 units of packed red blood cells. We are awaiting results of urinalysis to rule out urinary tract infection, although she has had no urinary symptoms, fever, nausea, or vomiting. 08/07/20 14:41 Patient notified me that she received a phone call from her primary care provider and she is scheduled to see Dr. Lee at 9:30 in the morning on Friday, August 09. 08/07/20 17:34 Urinalysis shows 2+ protein, trace leukocyte esterase, 5-10 squamous epithelial cells few amorphous sediment, moderate bacteria. This is suggestive of contamination as opposed to infection. Urine has been sent for culture. Patient is currently infusing her second unit of packed RBCs and is doing well. States when she got up to go to the bathroom, she felt much less fatigued. There is no signs of infection to explain her elevated WBC's and CRP. She has had no fever or abdominal pain. Chest xray is normal and urinalysis suggests contimination. Case discussed with Dr. Smith and he agrees that follow-up with hematology/oncology is appropriate. Discussed with patient that it imperative that she keep her appoint with Dr. Lee as scheduled on Friday for further workup. 08/07/20 18:27 Patient has finished her second unit of red blood cells and states that she is feeling better. Discussed strict return precautions with her including development of fever or any other concerning symptoms. Discussed importance of follow-up with Dr. Lee. Discharge instructions as documented. Departure - Departure Time of Disposition: 18:30 Disposition: Home, Self-Care 01 Condition: Good Clinical Impression: Anemia Qualifiers: Anemia type: other cause Other causes of anemia: other cause, not classified Q ualified Code(s): D64.89 - Other specified anemias Leukocytosis, unspecified Qualifiers: Leukocytosis type: unspecified Qualified Code(s): D72.829 - Elevated white blood cell count, unspecified - Discharge Information *PRESCRIPTION DRUG MONITORING PROGRAM REVIEWED*: No *COPY OF PRESCRIPTION DRUG MONITORING REPORT IN PATIENT MAURO: No Instructions: Blood Transfusion, Adult, [id number], Blood Transfusion, Adult, Care After, [id number] Referrals: Anita Jimenez NP [Primary Care Provider] - Rick Lee MD [Ordering Only Provider] - Forms: ED Department Discharge Additional Instructions: You were seen in the emergency department today related to a recurrence of low hemoglobin and associated fatigue. Workup included blood work, chest xray, urinalysis, and an EKG of your heart. Your hemoglobin was low at 5.1 for which you received 2 units of red blood cells and there were a number of other abnormalities within your blood that require follow-up. You urine was sent for culture. If this should grow out a bacteria indicative in infection, you will be notified and antibiotics will be started. Recommend that you keep your appo intment as currently scheduled with Dr. Lee on FridayAugust 07 at 0930. If you should experience any new or worsening symptoms of concern in the meantime, please do not hesitate to return the emergency department for reevaluation. Sepsis Event Note (ED) - Evaluation Sepsis Screening Result: No Definite Risk
[2020-08-07] MEDS ORDERED: Sodium Chloride 0.9% 250 ML IV SCH (14:15)
--- NOTE | 2020-08-08 16:20 | CR ---
Chest: PA and lateral views of the chest were obtained. Comparison: No prior chest imaging is available. Heart size and mediastinum are normal. Slight density within the left lung base is seen. Lungs otherwise are clear. Slight degenerative change is seen within the spine. Impression: 1. Slight density within the left lung base. This is either due to area of scarring or atelectasis. 2. Nothing acute is otherwise seen. Diagnostic code #2
== END 2020-08-07 18:50 | disposition home or self-care (01) ==
LOC: JD.ED 12:01
DX: D64.89 Other specified anemias (principal); D72.829 Elevated white blood cell count, unspecified; I10 Essential (primary) hypertension; Z88.8 Allergy status to other drugs, medicaments and biological substances; Z90.49 Acquired absence of other specified parts of digestive tract; Z79.899 Other long term (current) drug therapy
CPT/HCPCS: 36415; 36430; 71046; 80053; 81001; 82728; 83540; 84466; 84484; 85025; 85045; 86140; 86850; 86900; 86901; 86922; 87086; 87088; 93005; 99284; J7050; P9016; 93010; 99283

== ENCOUNTER 2021-06-27 11:54 | Emergency (ER) | payer BC, OTHER ==
[2021-06-27] MEDS ORDERED: Sodium Chloride 0.9% 10 ML Syringe FLUSH PRN (12:46)
--- NOTE | 2021-06-27 13:43 | CT ---
CT abdomen and pelvis Technique: Multiple axial sections were obtained from above the dome of the diaphragm inferiorly through the pubic symphysis. Intravenous and oral contrast were not utilized. Comparison: Prior right upper quadrant abdominal ultrasound in 11/12/18. This study shows a large abnormality within the mid and left side of the abdomen. Craniocaudal length is 28.1 cm, transverse width is 19.4 cm and AP measurement is 12.0 cm. This does not appear as a simple cyst and most likely represents a large hematoma. Two additional findings are seen within the pelvis with one measuring 8.4 cm in size and second measuring 6.9 cm in size. These are most likely representing additional areas of hematomas. Prior hysterectomy is noted. Surgical material is seen within the sigmoid colon. No pelvic adenopathy is seen. No free fluid is seen. Visualized lung bases show nothing acute. Noncontrast appearance of the liver shows no focal abnormality. Spleen size measures slightly prominent at 14.2 cm. Adrenal glands show no nodule. Pancreas shows no discrete abnormality. Surgical clips are seen from prior cholecystectomy. Kidneys show no abnormal calcifications. Small nonobstructing calculus is seen within the right kidney. Abdominal aorta shows no aneurysm. No retroperitoneal adenopathy is seen. No additional mesenteric abnormality is noted. Bone window settings were reviewed which show scattered degenerative change throughout the spine. No acute osseous finding is seen. Impression: 1. Three masses within the abdomen and pelvis. Largest mass measures 28.1 cm, second mass measures 8.4 cm and smaller mass measures 6.9 cm. These findings likely represent large hematomas. 2. Spleen size is slightly enlarged with a length of 14.2 cm. 3. No other acute abnormality is appreciated on noncontrast CT study of the abdomen and pelvis. Diagnostic code #3
--- NOTE | 2021-06-27 13:45 | EDM.PDOC ---
ED HPI GENERAL MEDICAL PROBLEM - General Chief Complaint: Neurological Problem Stated Complaint: WEAK Time Seen by Provider: 06/27/21 12:26 Source of Information: Reports: Patient, Provider History Limitations: Reports: No Limitations - History of Present Illness INITIAL COMMENTS - FREE TEXT/NARRATIVE: The patient presents from [facility] Anita's office. The patient has been having generalized weakness. She also had anemia in the past and it was found she had uterine cancer. She was seen at [facility] in [place], [place]. The did a hysterectomy with salpingo oophorectomy. 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 She was supposed to return to talk about chemo and radiation. Financially she could not return. Over a week ago she had a cough and congestion. She was checked for COVID and it was negative. She was put on doxycycline and felt better after that. She continued to have fatigue and weakness. She saw her provider Anita Jimenez and she did lab work. Her Hgb was 6.1. Her creatinine is also elevated at 2.34. That is a chronic problem. The last time her Hgb was low it ended up being cancer. Anita sent her over for blood transfusion and a CT scan. The patient has no abdominal pain. She said months ago she did have some pain in the left abdomen with bowel movements but it went away. She has no fever, chills, cough, chest pain, shortness of breath, dark or tarry stools. Onset: Gradual Duration: Week(s): Improves with: Reports: None Worsens with: Reports: None Associated Symptoms: Reports: No Other Symptoms - Related Data Allergies Allergy/AdvReac Type Severity Reaction Status Date / Time fluconazole [From Diflucan] Allergy Severe Rash Verified 06/27/21 12:33 Home Meds: Home Meds amLODIPine [Norvasc] 5 mg PO DAILY 10/15/19 [History] hydrALAZINE [Apresoline] 25 mg PO BID 06/26/20 [History] Past Medical History - Past Health History Medical/Surgical History: Denies Medical/Surgical History HEENT History: Reports: None Cardiovascular History: Reports: Hypertension Respiratory History: Reports: None Genitourinary History: Reports: Acute Renal Failure Other Genitourinary History: diagnosed about 1 yr ago ROCK[employer] SCIENTIST History: Reports: Fibroids, Musculoskeletal History: Reports: None Neurological History: Reports: None Psychiatric History: Reports: None, Depression Endocrine/Metabolic History: Reports: None Hematologic History: Reports: Anemia, Blood Transfusion(s) Immunologic History: Reports: None Oncologic (Cancer) History: Reports: Uterine Other Oncologic History: August had hysterectomy du to cancer Dermatologic History: Reports: None - Infectious Disease History Infectious Disease History: Reports: Chicken Pox, Shingles - Past Surgical History GI Surgical History: Reports: Cholecystectomy Female Surgical History: Reports: Hysterectomy Social & Family History - Tobacco Use Tobacco Use Status *Q: Never Tobacco User - Caffeine Use Caffeine Use: Reports: Coffee, Soda, Tea - Recreational Drug Use Recreational Drug Use: No ED ROS GENERAL - Review of Systems Review Of Systems: See Below Constitutional: Reports: Malaise, Weakness, Fatigue. Denies: Fever, Chills HEENT: Reports: No Symptoms Respiratory: Reports: No Symptoms Cardiovascular: Reports: No Symptoms Endocrine: Reports: Fatigue GI/Abdominal: Reports: No Symptoms : Reports: No Symptoms Musculoskeletal: Reports: No Symptoms ED EXAM, NEURO - Physical Exam Exam: See Below Exam Limited By: No Limitations General Appearance: Alert, No Apparent Distress Ears: Normal External Exam Nose: Normal Inspection Head Exam: Atraumatic, Normocephalic Neck: Normal Inspection Respiratory/Chest: No Respiratory Distress, Lungs Clear, Normal Breath Sounds Cardiovascular: Regular Rate, Rhythm, No Edema, No Murmur GI/Abdominal: Soft, Non-Tender, No Organomegaly, No Mass Neurological: Alert, No Motor/Sensory Deficits, Oriented x 3 Course - Vital Signs Last Recorded V/S: Last Vital Signs Temp 98.6 F 06/27/21 17:10 Pulse 91 06/27/21 17:41 Resp 16 06/27/21 17:41 BP 126/68 06/27/21 17:41 Pulse Ox 96 06/27/21 12:39 - Orders/Labs/Meds Orders: Active Orders 24 hr Category Date Time Status Cardiac Monitoring [RC] . DIRECTED Care 06/27/21 12:46 Active Peripheral IV Care [RC] . DIRECTED Care 06/27/21 12:47 Active Sodium Chloride 0.9% [Normal Saline] 1,000 ml Med 06/27/21 15:00 Active IV ASDIRECTED Sodium Chloride 0.9% [Saline Flush] Med 06/27/21 12:46 Active 10 ml FLUSH ASDIRECTED PRN Peripheral IV Insertion Adult [OM.PC] Stat Oth 06/27/21 12:46 Ordered Transfuse PRBC [Transfuse Red Blood Cells] [COMM] Stat Oth 06/27/21 12:49 Ordered Medication Orders Sodium Chloride (Normal Saline) 1,000 mls @ 75 mls/hr IV ASDIRECTED SHUBHAM Last Admin: 06/27/21 15:05 Dose: 75 mls/hr Documented by: BUNNY Sodium Chloride (Sodium Chloride 0.9% 10 Ml Syringe) 10 ml FLUSH ASDIRECTED PRN PRN Reason: Keep Vein Open Last Admin: 06/27/21 13:25 Dose: 10 ml Documented by: BUNNY Labs: Laboratory Tests 06/27/21 06/27/21 06/27/21 Range/Units 13:19 13:19 13:19 PT (9.7-12.0) SECONDS INR APTT (21.7-31.4) SECONDS Iron 15 L (50-170) ug/dL TIBC 166 (100-400) ug/dL % Saturation 9 L (20-55) % Transferrin 133 L (202-364) mg/dL Vitamin B12 550 (193-986) pg/ml Folate 49.7 (8.6-58.9) ng/mL Blood Type O POSITIVE Gel Antibody Screen Negative Crossmatch See Detail 06/27/21 Range/Units 13:19 PT 11.4 (9.7-12.0) SECONDS INR 1.03 APTT 26.5 (21.7-31.4) SECONDS Iron (50-170) ug/dL TIBC (100-400) ug/dL % Saturation (20-55) % Transferrin (202-364) mg/dL Vitamin B12 (193-986) pg/ml Folate (8.6-58.9) ng/mL Blood Type Gel Antibody Screen Crossmatch Meds: Medications Generic Name Dose Route Start Last Admin Trade Name Freq PRN Reason Stop Dose Admin Sodium Chloride 1,000 mls @ 75 mls/hr 06/27/21 15:00 06/27/21 15:05 Normal Saline IV 75 mls/hr ASDIRECTED SHUBHAM Administration Sodium Chloride 10 ml 06/27/21 12:46 06/27/21 13:25 Sodium Chloride 0.9% 10 Ml Syringe FLUSH 10 ml ASDIRECTED PRN Administration Keep Vein Open - Re-Assessments/Exams Free Text/Narrative Re-Assessment/Exam: 06/27/21 14:42 I ordered an IV saline lock some more labs, 2 units of blood and a CT scan of her abdomen and pelvis without IV contrast. Her WBC was 18 with a Hgb of 6.1. Her creatinine was elevated at 2.34. Her CT shows three masses within the abdomen and pelvis. Largest mass measures 28.1 cm, second mass measures 8.4 cm and smaller mass measures 6.9 cm. These findings likely represent large hematomas. Spleen size is slightly enlarged with a length of 14.2 cm. No other acute abnormality is appreciated on noncontrast CT study of the abdomen and pelvis. I called Dr Patel our general surgeon converting supervisor to see if this is something we can handle here. He was worried this was a recurrence of her cancer. I called [facility] and talked with the [employer] doctor converting supervisor Dr Ratliff and he was also worried it was a recurrence of her cancer. He is going to have his office contact her to make an appointment. I also called Anita to up date her. She would like to see the patient at 9:15 on Friday. Departure - Departure Time of Disposition: 18:45 Disposition: Home, Self-Care 01 Condition: Good Clinical Impression: Anemia Qualifiers: Anemia type: other cause Other causes of anemia: other cause, not classified Qualified Code(s): D64.89 - Other specified anemias Mass of abdomen Qualifiers: Abdominal location: generalized Qualified Code(s): R19.07 - Generalized intra- abdominal and pelvic swelling, mass and lump - Discharge Information *PRESCRIPTION DRUG MONITORING PROGRAM REVIEWED*: No *COPY OF PRESCRIPTION DRUG MONITORING REPORT IN PATIENT MAURO: No Referrals: Anita Jimenez, GARMENT EXAMINER [Primary Care Provider] - 1 Week (9:15 Friday) Forms: ED Department Discharge Additional Instructions: Follow up with Anita on Friday at 9:15. Follow up with the gynecology/oncology specialists in [place]. I talked with Dr Ratliff. You may see someone else. Please return if you are worse. Sepsis Event Note (ED) - Focused Exam Vital Signs: Vital Signs Temp Temp Pulse Resp BP Pulse Ox 06/27/21 17:41 91 16 126/68 06/27/21 17:10 98.6 F 89 16 133/67 06/27/21 15:33 92 16 147/65 H 06/27/21 15:18 98.8 F 99 16 151/73 H 06/27/21 15:03 98.8 F 103 H 14 137/75 06/27/21 12:39 97.8 F 109 H 20 156/80 H 96 - My Orders Last 24 Hours: My Active Orders 06/27/21 12:46 Cardiac Monitoring [RC] . DIRECTED Sodium Chloride 0.9% [Saline Flush] 10 ml FLUSH ASDIRECTED PRN Peripheral IV Insertion Adult [OM.PC] Stat 06/27/21 12:47 Peripheral IV Care [RC] . DIRECTED 06/27/21 12:49 Transfuse PRBC [Transfuse Red Blood Cells] [COMM] Stat 06/27/21 15:00 Sodium Chloride 0.9% [Normal Saline] 1,000 ml IV ASDIRECTED - Assessment/Plan Last 24 Hours: My Active Orders 06/27/21 12:46 Cardiac Monitoring [RC] . DIRECTED Sodium Chloride 0.9% [Saline Flush] 10 ml FLUSH ASDIRECTED PRN Peripheral IV Insertion Adult [OM.PC] Stat 06/27/21 12:47 Peripheral IV Care [RC] . DIRECTED 06/27/21 12:49 Transfuse PRBC [Transfuse Red Blood Cells] [COMM] Stat 06/27/21 15:00 Sodium Chloride 0.9% [Normal Saline] 1,000 ml IV ASDIRECTED
[2021-06-27] MEDS ORDERED: Sodium Chloride 0.9% 1,000 ML IV SCH (15:00)
== END 2021-06-27 18:46 | disposition home or self-care (01) ==
LOC: JD.ED 11:54
DX: D64.89 Other specified anemias (principal); R19.07 Generalized intra-abdominal and pelvic swelling, mass and lump; I10 Essential (primary) hypertension; Z88.8 Allergy status to other drugs, medicaments and biological substances; Z79.899 Other long term (current) drug therapy
CPT/HCPCS: 36415; 36430; 74176; 82607; 82746; 83540; 84466; 85610; 85730; 86850; 86900; 86901; 86922; 99285; J7030; P9016

== ENCOUNTER 2023-07-11 11:18 | Emergency (ER) | payer BC ==
[2023-07-11] MEDS ORDERED: Sodium Chloride 0.9% 10 ML Syringe FLUSH PRN (11:34)
[2023-07-11 12:02] LABS: BASOPHILS PERCENT AUTO 0.1 % (0.0-1.0); EOSINOPHILS PERCENT AUTO 0.2 % (0.0-6.0); HEMATOCRIT 23.6 % (37.0-47.0); IMMATURE GRAN ABSOLUTE AUTO 0.24 K/mm3 (0.00-0.05); IMMATURE GRAN PERCENT AUTO 2.5 % (0.0-0.4); LYMPHOCYTES ABSOLUTE AUTO 0.6 K/mm3 (1.0-4.8); LYMPHOCYTES PERCENT AUTO 5.8 % (24.0-44.0); MEAN CORPUSCULAR HEMOGLOBIN 29.8 pg (28.0-32.0); MEAN CORPUSCULAR HGB CONC 30.1 g/dl (32.0-36.0); MEAN CORPUSCULAR VOLUME 99.2 fl (83.0-99.0); MEAN PLATELET VOLUME 9.8 fl (9.4-12.3); MONOCYTES ABSOLUTE AUTO 0.1 K/mm3 (0.0-0.8); MONOCYTES PERCENT AUTO 1.3 % (0.0-8.0); NEUTROPHILS ABSOLUTE AUTO 8.6 K/mm3 (1.8-7.7); NEUTROPHILS PERCENT AUTO 90.1 % (41.0-71.0); PLATELET COUNT,PLT 126 K/mm3 (150-400); RED BLOOD CELL COUNT 2.38 M/mm3 (4.10-5.30); WHITE BLOOD CELL COUNT,WBC 9.51 K/mm3 (3.9-11.3)
[2023-07-11 12:10] LABS: HEMOGLOBIN 7.1 gm/dl (12.0-16.0)
[2023-07-11] MEDS ORDERED: Piperacillin/Tazobactam 4.5 GM in Sodium Chloride 0.9% 100 ML IV ONE (12:21)
[2023-07-11 12:22] LABS: SLIDE REVIEW ABNORMAL SMEAR
[2023-07-11] MEDS ORDERED: Sodium Chloride 0.9% 1,000 ML IV ONE (12:23)
[2023-07-11 12:31] LABS: A/G RATIO 0.6 (1-2); ALANINE AMINOTRANSFERASE,ALT 24 U/L (14-59); ALBUMIN 2.3 g/dl (3.4-5.0); ALKALINE PHOSPHATASE 308 U/L (46-116); ANION GAP 19.5 (5-15); ASPARTATE AMNIOTRANSFERASE,AST 22 U/L (15-37); BILIRUBIN TOTAL 0.6 mg/dL (0.2-1.0); BLOOD UREA NITROGEN,BUN 56 mg/dL (7-18); BUN/CREATININE RATIO 19.3 (14-18); CALCIUM 8.8 mg/dL (8.5-10.1); CARBON DIOXIDE,CO2 20 mEq/L (21-32); CHLORIDE,CL 104 mEq/L (98-107); CREATININE 2.9 mg/dL (0.55-1.02); ESTIMATED GFR 18 mL/min (>60); GLUCOSE RANDOM 115 mg/dL (70-99); POTASSIUM,K 4.5 mEq/L (3.5-5.1); PROTEIN TOTAL,TP 6.2 g/dl (6.4-8.2); SODIUM,NA 139 mEq/L (136-145)
[2023-07-11 12:43] LABS: C-REACTIVE PROTEIN 34.5 mg/dL (<1.0)
[2023-07-11 14:24] LABS: APPEARANCE,URINE SLT CLOUDY (Clear); BILIRUBIN,URINE NEGATIVE (Negative); COLOR,URINE YELLOW (Yellow); GLUCOSE,URINE NEGATIVE (Negative); KETONES,URINE NEGATIVE (Negative); LEUKOCYTE ESTERASE,URINE 1+ (Negative); NITRITE,URINE NEGATIVE (Negative); OCCULT BLOOD,URINE 2+ (Negative); PH,URINE 7.5 (5.0-8.0); PROTEIN,URINE 2+ (Negative); UROBILINOGEN,URINE 0.2 (0.2-1.0)
[2023-07-11 14:34] LABS: BACTERIA,URINE MANY /hpf (FEW); MUCUS,URINE MODERATE /hpf (FEW); RBC,URINE 20-30 /hpf (0-5)
[2023-07-11 15:36] LABS: LACTIC ACID 0.6 mmol/L (0.4-2.0)
== END 2023-07-11 17:00 | disposition other institution (70) ==
LOC: JD.ED 11:18
DX: T83.192A Other mechanical complication of indwelling ureteral stent, initial encounter (principal); A41.9 Sepsis, unspecified organism; N39.0 Urinary tract infection, site not specified; C55 Malignant neoplasm of uterus, part unspecified; D64.89 Other specified anemias; I10 Essential (primary) hypertension; Z88.8 Allergy status to other drugs, medicaments and biological substances; Z79.899 Other long term (current) drug therapy
CPT/HCPCS: 36415; 71045; 76770; 80053; 81001; 83605; 85025; 86140; 87040; 87086; 87154; 96361; 96365; 99285; J2543; J3490; J7030

== ENCOUNTER 2023-09-16 09:50 | Emergency (ER) | payer BC ==
[2023-09-16] MEDS ORDERED: Sodium Chloride 0.9% 10 ML Syringe FLUSH PRN (10:18)
[2023-09-16] MEDS ORDERED: Cefepime 2 GM in Sodium Chloride 0.9% 50 ML IV ONE (10:18)
[2023-09-16] MEDS ORDERED: Sodium Chloride 0.9% 1,000 ML IV ONE ×2 (10:18→12:47)
[2023-09-16 10:54] LABS: HEMATOCRIT 25.3 % (37.0-47.0); HEMOGLOBIN 7.7 gm/dl (12.0-16.0); MEAN CORPUSCULAR HEMOGLOBIN 28.4 pg (28.0-32.0); MEAN CORPUSCULAR HGB CONC 30.4 g/dl (32.0-36.0); MEAN PLATELET VOLUME 11.8 fl (9.4-12.3); PLATELET COUNT,PLT 146 K/mm3 (150-400); RED BLOOD CELL COUNT 2.71 M/mm3 (4.10-5.30)
[2023-09-16] MEDS ORDERED: VANCOmycin 1.25 GM/250 ML 1.25 GM in Premix Bag 1 BAG IV ONE (11:00)
[2023-09-16 11:08] LABS: MEAN CORPUSCULAR VOLUME 93.4 fl (83.0-99.0); PROTHROMBIN TIME 9.9 SECONDS (9.7-12.0)
[2023-09-16 11:09] LABS: INR < 0.93
[2023-09-16 11:26] LABS: LACTIC ACID 0.4 mmol/L (0.4-2.0)
[2023-09-16 11:41] LABS: BAND PERCENT MAN 2 % (0-10); BASOPHILS PERCENT MAN 1 (0.1-1.2); EOSINOPHILS PERCENT MAN 0 % (0.7-5.8); LYMPHOCYTES % ATYPICAL MANUAL 0 %; LYMPHOCYTES PERCENT MAN 17 % (20-40); MONOCYTES PERCENT MAN 7 % (2-10)
[2023-09-16 11:43] LABS: ANISOCYTOSIS 1+ SLIGHT; OVALOCYTES 1+ SLIGHT
[2023-09-16 11:44] LABS: PLATELET COUNT ESTIMATE DECREASED; TOXIC GRANULATION 1+ SLIGHT
[2023-09-16 12:18] LABS: APPEARANCE,URINE CLOUDY (Clear); BILIRUBIN,URINE 1+ (Negative); COLOR,URINE ORANGE (Yellow); GLUCOSE,URINE NEGATIVE (Negative); KETONES,URINE TRACE (Negative); LEUKOCYTE ESTERASE,URINE 1+ (Negative); NITRITE,URINE NEGATIVE (Negative); OCCULT BLOOD,URINE 3+ (Negative); PROTEIN,URINE 3+ (Negative); UROBILINOGEN,URINE 0.2 (0.2-1.0)
[2023-09-16 12:29] LABS: BACTERIA,URINE MODERATE /hpf (FEW); MUCUS,URINE FEW /hpf (FEW); RBC,URINE TOO NUMEROUS TO CNT /hpf (0-5); RENAL EPITHELIAL CELLS,URINE 0-5 /hpf (0-5); SQUAMOUS EPITHELIAL CELLS,UR 0-5 /hpf (0-5); WBC,URINE 40-50 /hpf (0-5)
== END 2023-09-16 14:45 ==
LOC: JD.ED 09:50
DX: R41.9 Unspecified symptoms and signs involving cognitive functions and awareness (principal); R65.20 Severe sepsis without septic shock; N17.9 Acute kidney failure, unspecified; I10 Essential (primary) hypertension; Z88.1 Allergy status to other antibiotic agents; Z90.710 Acquired absence of both cervix and uterus
CPT/HCPCS: 36415; 71046; 71046-26; 74176; 74176-26; 81001; 83605; 85007; 85027; 85610; 86140; 86850; 86900; 86901; 87040; 93971-26-LT; 93971-LT; 96361; 96365; 96366; 96367; 99285; 99285-25; J0692; J3370; J3490; J7030

== ENCOUNTER 2023-10-08 17:52 | Emergency (ER) | payer BC ==
[2023-10-08 18:44] LABS: BASOPHILS ABSOLUTE AUTO 0.1 K/mm3 (0.0-0.2); BASOPHILS PERCENT AUTO 0.3 % (0.0-1.0); EOSINOPHILS ABSOLUTE AUTO 0.1 K/mm3 (0.0-0.4); EOSINOPHILS PERCENT AUTO 0.2 % (0.0-6.0); HEMATOCRIT 29.8 % (37.0-47.0); HEMOGLOBIN 8.7 gm/dl (12.0-16.0); IMMATURE GRAN ABSOLUTE AUTO 7.38 K/mm3 (0.00-0.05); IMMATURE GRAN PERCENT AUTO 16.7 % (0.0-0.4); LYMPHOCYTES ABSOLUTE AUTO 2.5 K/mm3 (1.0-4.8); LYMPHOCYTES PERCENT AUTO 5.6 % (24.0-44.0); MEAN CORPUSCULAR HGB CONC 29.2 g/dl (32.0-36.0); MEAN CORPUSCULAR VOLUME 99.3 fl (83.0-99.0); MEAN PLATELET VOLUME 10.6 fl (9.4-12.3); MONOCYTES ABSOLUTE AUTO 1.8 K/mm3 (0.0-0.8); NEUTROPHILS ABSOLUTE AUTO 32.4 K/mm3 (1.8-7.7); NEUTROPHILS PERCENT AUTO 73.2 % (41.0-71.0); NRBC ABSOLUTE 0.16 (0.00-0.02); NRBC PERCENT 0.4 % (0.0-0.2); PLATELET COUNT,PLT 186 K/mm3 (150-400); WHITE BLOOD CELL COUNT,WBC 44.23 K/mm3 (3.9-11.3)
[2023-10-08 19:03] LABS: BILIRUBIN TOTAL 0.7 mg/dL (0.2-1.0)
[2023-10-08 19:18] LABS: CORONAVIRUS COVID-19 NAA NEGATIVE (NEGATIVE); INFLUENZA A NAA NEGATIVE (NEGATIVE)
[2023-10-08] MEDS: Sodium Chloride 0.9% 500 ML IV ONE ×2 (19:18→19:50)
[2023-10-08 19:45] LABS: APPEARANCE,URINE CLOUDY (Clear); BILIRUBIN,URINE 1+ (Negative); COLOR,URINE DARK YELLOW (Yellow); GLUCOSE,URINE NEGATIVE (Negative); KETONES,URINE TRACE (Negative); LEUKOCYTE ESTERASE,URINE 1+ (Negative); NITRITE,URINE NEGATIVE (Negative); OCCULT BLOOD,URINE 2+ (Negative); PROTEIN,URINE 3+ (Negative); UROBILINOGEN,URINE 0.2 (0.2-1.0)
[2023-10-08 19:47] LABS: A/G RATIO 0.4 (1-2); ALBUMIN 1.7 g/dl (3.4-5.0); BUN/CREATININE RATIO 13.4 (14-18); CALCIUM 8.2 mg/dL (8.5-10.1); CREATININE 9.2 mg/dL (0.55-1.02); EST CRCL DRUG DOSING (CG) 6.72 mL/min; PROTEIN TOTAL,TP 5.7 g/dl (6.4-8.2)
[2023-10-08 19:48] LABS: INR 1.07; PROTHROMBIN TIME 11.4 SECONDS (9.7-12.0)
[2023-10-08 19:52] LABS: BACTERIA,URINE MANY /hpf (FEW); MUCUS,URINE FEW /hpf (FEW); RBC,URINE 40-50 /hpf (0-5); WBC,URINE >100 /hpf (0-5)
[2023-10-08] MEDS: Albuterol/Ipratropium 3.0-0.5 MG/3 ML Neb Soln NEB ONE (20:02)
[2023-10-08] MEDS: Calcium Chloride 10% 1 GM/10 ML Syringe IVPUSH ONE (20:07)
[2023-10-08] MEDS: Sodium Bicarbonate 8.4% 50 MEQ/50 ML Syringe IVPUSH ONE (20:20)
[2023-10-08] MEDS: Insulin Regular, Human 100 Units/ML 3 ML Vial SUBCUT ONE (20:38)
[2023-10-08] MEDS: Famotidine 20 MG/2 ML SDV IVPUSH ONE (20:42)
[2023-10-08] MEDS: 50% Dextrose in Water 50 ML Syringe IVPUSH ONE (20:46)
[2023-10-08] MEDS: cefTRIAXone 1 GM in Sodium Chloride 0.9% 100 ML IV ONE (21:04)
[2023-10-08] MEDS ORDERED: Norepinephrine 4 MG in Dextrose 5% in Water 246 ML IV SCH (21:30)
== END 2023-10-08 21:30 ==
LOC: JD.ED 17:52
DX: E87.5 Hyperkalemia (principal); A41.9 Sepsis, unspecified organism; D64.89 Other specified anemias; R79.89 Other specified abnormal findings of blood chemistry; N17.9 Acute kidney failure, unspecified; I10 Essential (primary) hypertension; K21.9 Gastro-esophageal reflux disease without esophagitis; Z88.1 Allergy status to other antibiotic agents
CPT/HCPCS: 0240U; 36415; 80053; 81001; 83605; 83880; 84484; 85025; 85610; 87040; 87086; 93005; 94640; 96361; 96365; 96375; 99285; J0696; J1815; J3490; J7030; J7620-GY